=== PATIENT | male | born 1955 | race Caucasian/White ===

== ENCOUNTER 2023-08-01 17:21 | Inpatient (IN) | payer OTHER ==
[~2023-08-01] VITALS: Ht 172.7 cm; Wt 68.0 kg
[~2023-08-01 17:21] MED LIST: Aspirin Ec PO; COR12.5 PO; FAMO20TA8 PO; LISI10TA29 PO; NITSL SL
[2023-08-01 17:27] VITALS: BP_SYST 155; PULSE 69; RESP 18; TEMP 98.2; O2SAT 96
[2023-08-01] MEDS ORDERED: ASPIRIN 81 MG TAB.CHEW PO ONE (18:15)
[2023-08-01 18:31] LABS: BASOPHILS # (AUTO) 0.1 K/uL (0.0-0.2); EOSINOPHILS # (AUTO) 0.3 K/uL (0.0-0.4); EOSINOPHILS % (AUTO) 3.4 % (0.0-4.0); HEMATOCRIT 43.4 % (36-54); HEMOGLOBIN 14.3 g/dL (14.0-18.0); LYMPHOCYTES # (AUTO) 1.2 K/uL (1.0-5.5); LYMPHOCYTES % (AUTO) 15.3 % (20.5-51.5); MEAN CORPUSCULAR HEMOGLOBIN 32 pg (27-31); MEAN CORPUSCULAR HGB CONC 33 % (32-36); MEAN CORPUSCULAR VOLUME 96 fL (79.0-98.0); MONOCYTES # (AUTO) 0.9 K/uL (0.0-1.0); MONOCYTES % (AUTO) 11.5 % (1.7-9.3); NEUTROPHILS # (AUTO) 5.2 K/uL (1.8-7.7); NEUTROPHILS % (AUTO) 68.8 % (40.0-70.0); PLATELET COUNT (AUTO) 290 K/uL (130-430); RED BLOOD CELL COUNT(AUTO) 4.52 MIL/uL (4.2-6.2); RED CELL DISTRIBUTION WIDTH 13.7 % (9.0-15.0); WHITE BLOOD COUNT (AUTO) 7.5 K/uL (4.8-10.8)
[2023-08-01 18:50] LABS: ANION GAP 6 (5-15); CALCIUM 8.1 mg/dL (8.4-11.0); CARBON DIOXIDE 29 mmol/L (23-29); CHLORIDE 105 mmol/L (98-107); CREATININE 1.03 mg/dL (0.55-1.30); GFR AFRICAN AMERICAN 93 mL/min (>90); GLUCOSE 101 mg/dL (74-106); POTASSIUM 4.6 mmol/L (3.5-5.1); SODIUM SERUM 140 mmol/L (136-145); UREA NITROGEN, BLOOD 20 mg/dL (8-21)
[2023-08-01 18:55] LABS: GFR NON AFRICAN-AMERICAN 77 mL/min (>90)
[2023-08-01] MEDS ORDERED: FUROSEMIDE 40 MG/4 ML VIAL IVP ONE (19:00)
[2023-08-01] MEDS ORDERED: ASPIRIN 81 MG TABLET(ECOTRIN) PO ONE (19:00)
[2023-08-01] MEDS ORDERED: ACETAMINOPHEN 500 MG TABLET PO ONE (19:00)
[2023-08-01] MEDS ORDERED: NITROGLYCERIN 1 INCH (GM) OINT. TP ONE (19:00)
[2023-08-01] MEDS ORDERED: ENOXAPARIN SODIUM 80 MG/0.8 ML SYRINGE SUBCUT ONE (20:15)
[2023-08-01] MEDS ORDERED: NITROGLYCERIN 0.4 MG TAB.SUBL SL ONE (21:15)
[2023-08-01] MEDS ORDERED: ENOXAPARIN SODIUM 80 MG/0.8 ML SYRINGE SUBCUT SCH (22:30)
[2023-08-01 22:51] VITALS: BP_SYST 168; PULSE 89; RESP 17; TEMP 97.1; O2SAT 93
[2023-08-01 22:53] VITALS: BP_SYST 168; PULSE 73; RESP 14; TEMP 97.1; O2SAT 95
[2023-08-01 23:00] VITALS: BP_SYST 149; PULSE 74; RESP 22; O2SAT 94
[2023-08-01] MEDS ORDERED: HYDROcodone/ACETAMIN 5-325 MG TAB (NORCO/ VICODIN) PO PRN (23:15)
[2023-08-01] MEDS ORDERED: HYDROcodone/ACETAMIN 10-325 MG TAB PO PRN (23:15)
[2023-08-01] MEDS ORDERED: MORPHINE 2 MG/ML INJ. SYRINGE IVP PRN (23:15)
[2023-08-01] MEDS ORDERED: LORazepam 2 MG/ML VIAL IVP PRN (23:15)
[2023-08-01] MEDS ORDERED: NALOXONE HCL 0.4 MG/ML AMP (NARCAN) IVP PRN ×3 (23:15)
[2023-08-01] MEDS ORDERED: ONDANSETRON HCL 4 MG/2 ML VIAL IVP PRN (23:15)
[2023-08-02] VITALS (24 sets, daily range): BP systolic 104–151; PULSE 60–85; RESP 17–32; TEMP 96.8–98.4; O2SAT 91–100
[2023-08-02] MEDS: ACETAMINOPHEN 325 MG TABLET PO PRN ×3 (02:49→22:58)
[2023-08-02 06:30] LABS: BASOPHILS % (AUTO) 0.8 % (0.0-2.0); EOSINOPHILS # (AUTO) 0.2 K/uL (0.0-0.4); EOSINOPHILS % (AUTO) 3.1 % (0.0-4.0); HEMATOCRIT 43.9 % (36-54); HEMOGLOBIN 14.4 g/dL (14.0-18.0); LYMPHOCYTES # (AUTO) 0.8 K/uL (1.0-5.5); LYMPHOCYTES % (AUTO) 13.4 % (20.5-51.5); MEAN CORPUSCULAR HEMOGLOBIN 31 pg (27-31); MEAN CORPUSCULAR HGB CONC 33 % (32-36); MEAN CORPUSCULAR VOLUME 96 fL (79.0-98.0); MONOCYTES # (AUTO) 0.9 K/uL (0.0-1.0); MONOCYTES % (AUTO) 14.5 % (1.7-9.3); NEUTROPHILS # (AUTO) 4.1 K/uL (1.8-7.7); NEUTROPHILS % (AUTO) 68.2 % (40.0-70.0); PLATELET COUNT (AUTO) 261 K/uL (130-430); RED BLOOD CELL COUNT(AUTO) 4.57 MIL/uL (4.2-6.2); RED CELL DISTRIBUTION WIDTH 13.7 % (9.0-15.0)
[2023-08-02 06:39] LABS: ALBUMIN 3.1 g/dL (3.4-4.8); CALCIUM 8.5 mg/dL (8.4-11.0); PHOSPHORUS 4.2 mg/dL (2.7-4.5); POTASSIUM 3.9 mmol/L (3.5-5.1); TOTAL BILIRUBIN 0.6 mg/dL (0.0-1.0); TOTAL PROTEIN, SERUM 7.1 g/dL (6.4-8.3)
[2023-08-02] MEDS: CARVEDILOL 12.5 MG TABLET (COREG) PO SCH ×2 (08:21→21:24)
[2023-08-02] MEDS: LISINOPRIL 10 MG TABLET (PRINIVIL) PO SCH (08:21)
[2023-08-02] MEDS: FAMOTIDINE 20 MG TABLET PO SCH ×2 (08:21→21:22)
[2023-08-02] MEDS: ASPIRIN 81 MG TABLET(ECOTRIN) PO SCH (08:22)
[2023-08-02] MEDS: ENOXAPARIN SODIUM 80 MG/0.8 ML SYRINGE SUBCUT SCH ×2 (08:30→21:24)
[2023-08-02] MEDS: NORMAL SALINE 5 ML DISP.SYRIN IVF SCH ×3 (08:31→21:24)
[2023-08-02 09:18] LABS: THYROID STIMULATING HORMONE 2.24 uIu/mL (0.34-4.82)
[2023-08-03] VITALS (15 sets, daily range): BP systolic 110–152; PULSE 53–77; RESP 16–34; TEMP 97.8–99.1; O2SAT 91–98
[2023-08-03] MEDS: NORMAL SALINE 5 ML DISP.SYRIN IVF SCH ×3 (06:00→20:21)
[2023-08-03 06:28] LABS: CALCIUM 8.1 mg/dL (8.4-11.0); CREATININE 0.96 mg/dL (0.55-1.30); POTASSIUM 3.7 mmol/L (3.5-5.1)
[2023-08-03 06:37] LABS: BASOPHILS % (AUTO) 0.7 % (0.0-2.0); EOSINOPHILS # (AUTO) 0.2 K/uL (0.0-0.4); EOSINOPHILS % (AUTO) 2.7 % (0.0-4.0); HEMATOCRIT 43.2 % (36-54); HEMOGLOBIN 13.9 g/dL (14.0-18.0); LYMPHOCYTES # (AUTO) 1.4 K/uL (1.0-5.5); LYMPHOCYTES % (AUTO) 23.8 % (20.5-51.5); MEAN CORPUSCULAR HEMOGLOBIN 31 pg (27-31); MEAN CORPUSCULAR HGB CONC 32 % (32-36); MEAN CORPUSCULAR VOLUME 96 fL (79.0-98.0); MONOCYTES # (AUTO) 0.9 K/uL (0.0-1.0); NEUTROPHILS # (AUTO) 3.4 K/uL (1.8-7.7); NEUTROPHILS % (AUTO) 57.8 % (40.0-70.0); PLATELET COUNT (AUTO) 238 K/uL (130-430); RED BLOOD CELL COUNT(AUTO) 4.49 MIL/uL (4.2-6.2); RED CELL DISTRIBUTION WIDTH 13.7 % (9.0-15.0); WHITE BLOOD COUNT (AUTO) 5.8 K/uL (4.8-10.8)
[2023-08-03] MEDS: ASPIRIN 81 MG TABLET(ECOTRIN) PO SCH (08:39)
[2023-08-03] MEDS: CARVEDILOL 12.5 MG TABLET (COREG) PO SCH ×2 (08:39→20:20)
[2023-08-03] MEDS: ENOXAPARIN SODIUM 80 MG/0.8 ML SYRINGE SUBCUT SCH ×2 (08:40→20:19)
[2023-08-03] MEDS: FAMOTIDINE 20 MG TABLET PO SCH ×2 (08:40→20:20)
[2023-08-03] MEDS: LISINOPRIL 10 MG TABLET (PRINIVIL) PO SCH (08:40)
[2023-08-03 09:51] LABS: BARBITURATE, URINE NEGATIVE (NEG <=200); BENZODIAZEPINE, URINE POSITIVE (NEG <=150); CANNABINOID, URINE NEGATIVE (NEG <=50); COCAINE, URINE NEGATIVE (NEG <=150); METHAMPHETAMINES SCREEN,URINE NEGATIVE (NEG <=500); OPIATE, URINE NEGATIVE (NEG <=100); PHENCYCLIDINE SCREEN,URINE NEGATIVE (NEG <=25); UR TRICYCLIC ANTIDEPRESSANTS NEGATIVE (NEG <=300); URINE AMPHETAMINE NEGATIVE (NEG <=500); URINE METHADONE NEGATIVE (NEG <=200); URINE OXYCODONE SCREEN NEGATIVE (NEG <=100)
[2023-08-03] MEDS: ACETAMINOPHEN 325 MG TABLET PO PRN (23:47)
[2023-08-04 00:06] VITALS: BP_SYST 138; PULSE 80; RESP 18; TEMP 99.4; O2SAT 95
[2023-08-04] MEDS: NORMAL SALINE 5 ML DISP.SYRIN IVF SCH ×3 (06:24→23:08)
[2023-08-04 08:00] VITALS: BP_SYST 132; PULSE 64; RESP 18; TEMP 97.5; O2SAT 99
[2023-08-04] MEDS: ACETAMINOPHEN 325 MG TABLET PO PRN ×2 (08:05→17:24)
[2023-08-04 08:33] LABS: BASOPHILS % (AUTO) 0.9 % (0.0-2.0); EOSINOPHILS # (AUTO) 0.3 K/uL (0.0-0.4); EOSINOPHILS % (AUTO) 5.1 % (0.0-4.0); HEMATOCRIT 44.3 % (36-54); HEMOGLOBIN 14.2 g/dL (14.0-18.0); LYMPHOCYTES # (AUTO) 1.5 K/uL (1.0-5.5); LYMPHOCYTES % (AUTO) 28.5 % (20.5-51.5); MEAN CORPUSCULAR HEMOGLOBIN 31 pg (27-31); MEAN CORPUSCULAR HGB CONC 32 % (32-36); MEAN CORPUSCULAR VOLUME 96 fL (79.0-98.0); MONOCYTES % (AUTO) 19.2 % (1.7-9.3); NEUTROPHILS # (AUTO) 2.5 K/uL (1.8-7.7); NEUTROPHILS % (AUTO) 46.3 % (40.0-70.0); PLATELET COUNT (AUTO) 234 K/uL (130-430); RED BLOOD CELL COUNT(AUTO) 4.61 MIL/uL (4.2-6.2); RED CELL DISTRIBUTION WIDTH 13.6 % (9.0-15.0); WHITE BLOOD COUNT (AUTO) 5.3 K/uL (4.8-10.8)
[2023-08-04] MEDS: FAMOTIDINE 20 MG TABLET PO SCH ×2 (08:33→21:32)
[2023-08-04] MEDS: CARVEDILOL 12.5 MG TABLET (COREG) PO SCH ×2 (08:34→21:31)
[2023-08-04] MEDS: ASPIRIN 81 MG TABLET(ECOTRIN) PO SCH (08:35)
[2023-08-04] MEDS: LISINOPRIL 10 MG TABLET (PRINIVIL) PO SCH (08:35)
[2023-08-04] MEDS: ENOXAPARIN SODIUM 80 MG/0.8 ML SYRINGE SUBCUT SCH ×2 (08:36→21:33)
[2023-08-04 08:51] LABS: ALBUMIN 2.9 g/dL (3.4-4.8); CALCIUM 8.1 mg/dL (8.4-11.0); CREATININE 1.06 mg/dL (0.55-1.30); TOTAL BILIRUBIN 0.3 mg/dL (0.0-1.0); TOTAL PROTEIN, SERUM 6.9 g/dL (6.4-8.3)
[2023-08-04] MEDS ORDERED: FUROSEMIDE 40 MG TABLET PO ONE (13:15)
[2023-08-04 16:09] VITALS: BP_SYST 143; PULSE 71; RESP 17; TEMP 99; O2SAT 99
[2023-08-04 17:27] VITALS: BP_SYST 133; PULSE 89; RESP 18; TEMP 100.2; O2SAT 99
[2023-08-04] MEDS ORDERED: HYDROcodone/ACETAMIN 5-325 MG TAB (NORCO/ VICODIN) PO PRN (18:00)
[2023-08-04 18:35] VITALS: TEMP 97.3
[2023-08-04] MEDS: P-EPHED SUL/LORATADINE 1 EACH TAB.SR.12H PO SCH (20:01)
[2023-08-04 21:00] VITALS: BP_SYST 143; PULSE 74; RESP 18; TEMP 99; O2SAT 98
[2023-08-05] VITALS (7 sets, daily range): BP systolic 117–162; PULSE 59–87; RESP 15–18; TEMP 96.9–99.3; O2SAT 95–98
[2023-08-05 06:10] LABS: BASOPHILS % (AUTO) 0.9 % (0.0-2.0); EOSINOPHILS # (AUTO) 0.2 K/uL (0.0-0.4); EOSINOPHILS % (AUTO) 4.3 % (0.0-4.0); HEMOGLOBIN 14.1 g/dL (14.0-18.0); LYMPHOCYTES # (AUTO) 1.6 K/uL (1.0-5.5); LYMPHOCYTES % (AUTO) 31.2 % (20.5-51.5); MEAN CORPUSCULAR HEMOGLOBIN 31 pg (27-31); MEAN CORPUSCULAR HGB CONC 33 % (32-36); MEAN CORPUSCULAR VOLUME 96 fL (79.0-98.0); MONOCYTES # (AUTO) 0.9 K/uL (0.0-1.0); MONOCYTES % (AUTO) 16.1 % (1.7-9.3); NEUTROPHILS # (AUTO) 2.5 K/uL (1.8-7.7); NEUTROPHILS % (AUTO) 47.5 % (40.0-70.0); PLATELET COUNT (AUTO) 217 K/uL (130-430); RED CELL DISTRIBUTION WIDTH 13.7 % (9.0-15.0); WHITE BLOOD COUNT (AUTO) 5.3 K/uL (4.8-10.8)
[2023-08-05] MEDS: P-EPHED SUL/LORATADINE 1 EACH TAB.SR.12H PO SCH (06:28)
[2023-08-05] MEDS: ACETAMINOPHEN 325 MG TABLET PO PRN (06:28)
[2023-08-05] MEDS: NORMAL SALINE 5 ML DISP.SYRIN IVF SCH ×2 (06:28→14:07)
[2023-08-05 07:04] LABS: CALCIUM 8.8 mg/dL (8.4-11.0); CREATININE 0.94 mg/dL (0.55-1.30); POTASSIUM 3.9 mmol/L (3.5-5.1)
[2023-08-05] MEDS: FAMOTIDINE 20 MG TABLET PO SCH (08:13)
[2023-08-05] MEDS: CARVEDILOL 12.5 MG TABLET (COREG) PO SCH (08:13)
[2023-08-05] MEDS: ASPIRIN 81 MG TABLET(ECOTRIN) PO SCH (08:14)
[2023-08-05] MEDS: ENOXAPARIN SODIUM 80 MG/0.8 ML SYRINGE SUBCUT SCH (08:17)
[2023-08-05] MEDS ORDERED: FUROSEMIDE 40 MG TABLET PO SCH (09:00)
[2023-08-05] MEDS ORDERED: SPIRONOLACTONE 25 MG TABLET (ALDACTONE) PO SCH (09:00)
[2023-08-05] MEDS ORDERED: LISINOPRIL 10 MG TABLET (PRINIVIL) PO SCH (09:00)
[2023-08-05] MEDS ORDERED: SPIR25TA PO (09:07)
[2023-08-05] MEDS ORDERED: FURO-149 PO (09:07)
[2023-08-05] MEDS ORDERED: [UNRECOGNIZED DRUG - CODE] PO (09:07)
[2023-08-05] MEDS ORDERED: LISI10TA29 PO (09:07)
== END 2023-08-05 17:46 | disposition home health service (06) | DRG 280 ==
LOC: SED 17:21 → SIC 21:34 → STU 08-03 13:42 → SMU 08-05 09:20
PROVIDERS: ADMIT Preventive Medicine Preventive Medicine/Occupational Environmental Medicine; ATTEND Preventive Medicine Preventive Medicine/Occupational Environmental Medicine
DX: I11.0 Hypertensive heart disease with heart failure (principal); I50.23 Acute on chronic systolic (congestive) heart failure; I21.A1 Myocardial infarction type 2; J45.909 Unspecified asthma, uncomplicated; I25.10 Atherosclerotic heart disease of native coronary artery without angina pectoris; K21.9 Gastro-esophageal reflux disease without esophagitis; I42.7 Cardiomyopathy due to drug and external agent; E83.51 Hypocalcemia; R73.9 Hyperglycemia, unspecified; I42.8 Other cardiomyopathies; E88.09 Other disorders of plasma-protein metabolism, not elsewhere classified; F15.10 Other stimulant abuse, uncomplicated; Z79.01 Long term (current) use of anticoagulants; I25.2 Old myocardial infarction; Z72.0 Tobacco use
CPT/HCPCS: 36415; 71045; 80048; 80053; 80061; 80307; 83735; 83880; 84100; 84443; 84484; 85025; 93005; 96374; 99285; G0378; J1650; J1940; J2060